=== PATIENT | male | born 1940 | race Caucasian/White ===

== ENCOUNTER 2020-03-07 09:36 | Emergency (ER) | payer BC ==
[~2020-03-07] VITALS: Ht 182.9 cm; Wt 97.5 kg
[~2020-03-07 09:36] MED LIST: ASPI325EC PO; ASPI81EC PO; CLOB.05TC TP; CLOP75 PO; ERGO50000 PO; GLYB2.5 PO; GLYB5 PO; Iron Supplemen325 MG PO; LISI20 PO; METF500 PO; METO50ER PO; OMEP20ER PO; PRAV20 PO; TAMS.4ER PO; XARELTO15 MG PO
== END 2020-03-07 11:11 | disposition home or self-care (01) ==
LOC: ER 09:36
DX: S80.12XA Contusion of left lower leg, initial encounter (principal); E11.9 Type 2 diabetes mellitus without complications; I10 Essential (primary) hypertension; I48.91 Unspecified atrial fibrillation; E78.5 Hyperlipidemia, unspecified; N40.0 Benign prostatic hyperplasia without lower urinary tract symptoms; Z79.82 Long term (current) use of aspirin; Z79.84 Long term (current) use of oral hypoglycemic drugs; Z79.02 Long term (current) use of antithrombotics/antiplatelets; Z79.899 Other long term (current) drug therapy; V43.52XA Car driver injured in collision with other type car in traffic accident, initial encounter; Y92.410 Unspecified street and highway as the place of occurrence of the external cause
CPT/HCPCS: 73590; 99284-25

== ENCOUNTER 2020-04-09 20:27 | Emergency (ER) | payer BC ==
[~2020-04-09] VITALS: Ht 182.9 cm; Wt 99.8 kg
== END 2020-04-09 22:45 | disposition home or self-care (01) ==
LOC: ER 20:27
DX: S90.511D Abrasion, right ankle, subsequent encounter (principal); E11.9 Type 2 diabetes mellitus without complications; I10 Essential (primary) hypertension; I48.91 Unspecified atrial fibrillation; E78.5 Hyperlipidemia, unspecified; Z79.01 Long term (current) use of anticoagulants; Z79.899 Other long term (current) drug therapy; Z79.84 Long term (current) use of oral hypoglycemic drugs; Z79.82 Long term (current) use of aspirin; Z79.02 Long term (current) use of antithrombotics/antiplatelets; Z86.73 Personal history of transient ischemic attack (TIA), and cerebral infarction without residual deficits; X58.XXXD Exposure to other specified factors, subsequent encounter
CPT/HCPCS: 99282

== ENCOUNTER 2023-04-19 15:35 | Inpatient (IN) | payer MEDICARE, BC ==
[~2023-04-19] VITALS: Ht 182.9 cm; Wt 89.6 kg
[2023-04-19 16:27] LABS: BASOPHILS ABSOLUTE AUTO 0.05 K/mm3 (0.00-0.23); BASOPHILS PERCENT AUTO 1 % (0-2); EOSINOPHILS PERCENT AUTO 3 % (0-6); Hematocrit 40.5 % (37.0-53.0); Hemoglobin 13.8 g/dL (13.5-17.5); IMMATURE GRAN ABSOLUTE AUTO 0.03 K/mm3 (0.00-0.10); IMMATURE GRAN PERCENT AUTO 0 % (0-1); LYMPHOCYTES ABSOLUTE AUTO 1.56 K/mm3 (0.84-5.20); LYMPHOCYTES PERCENT AUTO 21 % (21-46); MONOCYTES ABSOLUTE AUTO 0.52 K/mm3 (0.16-1.47); MONOCYTES PERCENT AUTO 7 % (4-13); Mean Corpuscular HGB 30.6 pg (26.0-34.0); Mean Corpuscular HGB Conc 34.1 g/dL (31.5-36.5); Mean Corpuscular Volume 90 fL (80-100); Mean Platelet Volume 9.7 fL (9.1-12.4); NEUTROPHILS ABSOLUTE AUTO 4.98 K/mm3 (1.96-9.15); NEUTROPHILS PERCENT AUTO 68 % (41-73); Platelet Count 194 K/mm3 (150-400); RDW Coefficient Variation 12.1 % (11.7-14.2); RDW Standard Deviation 39.7 fL (35.1-46.3); Red Blood Cell Count 4.51 M/mm3 (4.30-5.90); White Blood Cell Count 7.34 K/mm3 (4.00-11.30)
[2023-04-19 16:56] LABS: Bilirubin, Total 0.3 mg/dL (0.1-1.0); Bun/Creatinine Ratio 37.7 (12.0-20.0); Calcium, Blood 9.7 mg/dL (8.5-10.1); Creatinine, Blood 0.85 mg/dL (0.60-1.20); Globulin, Blood 4.1 g/dL (2.2-4.0); Potassium, Blood 4.4 mmol/L (3.5-5.5); Total Protein, Blood 8.1 g/dL (6.4-8.2)
[2023-04-19] MEDS ORDERED: Aspir 8181 MG PO (17:53)
[2023-04-19] MEDS ORDERED: GLYBURIDE PO (17:54)
[2023-04-19 19:00] LABS: International Normalized Ratio 1.04; Prothrombin Time Results 10.9 Sec (9.7-11.5)
[2023-04-19] MEDS ORDERED: PRAV20 PO (22:26)
[2023-04-19] MEDS ORDERED: NYAMYC1513 TOP (22:27)
[2023-04-19] MEDS ORDERED: GLYB2.5 PO (22:27)
[2023-04-19] MEDS ORDERED: METF500 PO (22:28)
[2023-04-20 09:30] VITALS: BP 130/57
[2023-04-20 12:36] VITALS: BP 135/64
[2023-04-20 16:51] VITALS: BP 116/67
[2023-04-20 20:16] VITALS: BP 123/72
[2023-04-21 04:19] VITALS: BP 124/59
--- NOTE | 2023-04-21 04:20 | NUR ---
SHIFT SUMMARY. PT HAS BEEN DOING WELL THIS SHIFT. [id number] REQUIRING SOME REORIENTATION WITH DATE (ABLE TO TELL ME MONTH/YEAR BUT NOT DAY OF WEEK), PLEASANT, COOPERATIVE WITH CARE. NEURO CHECKS COMPLETED Q4 PER ORDER, NO CHANGES THIS SHIFT. 1-2 PERSON ASSIST TO BATHROOM, REQUIRES 2 PEOPLE GETTING OOB BUT STEADY GAIT TO BATHROOM ONCE UP. NO PAIN REPORTED THIS SHIFT. PT SOMEWHAT IMPULSIVE BUT VERY EASILY REDIRECTED. BED ALARM LEFT IN PLACE FOR SAFETY. PT HAS BEEN ABLE TO SLEEP WELL THROUGH MOST OF SHIFT. BED LOCKED IN LOWEST POSITION. CALL LIGHT LEFT WITHIN REACH.
[2023-04-21 06:15] LABS: CHOL/HDL RATIO 2.5; Cholesterol 108 mg/dL (50-200); HDL Cholesterol 43 mg/dL (>39); LDL/HDL RATIO 0.9; Low Density Lipoprotein Chol 38 mg/dL (0-110); Triglycerides 137 mg/dL (30-160); Very Low Density Lipoprot Chol 27 mg/dL (6-32)
[2023-04-21 07:21] VITALS: BP 142/77
[2023-04-21] MEDS ORDERED: CLOP75 PO (11:20)
[2023-04-21] MEDS ORDERED: ASPIR 8181 M1 PO (11:20)
[2023-04-21] MEDS ORDERED: DOCU100 PO (11:22)
[2023-04-21] MEDS ORDERED: MIRALAX17 GM PO (11:23)
--- NOTE | 2023-04-21 15:35 | NUR ---
DISCHARGE SUMMARY: NO ACUTE EVENTS T/O THE DAY. NO CHANGES TO NEUROLOGICAL ASSESSMENT. PT WORKED WITH PT/OT/ST TODAY. PT WILL FOLLOW UP WITH HOME HEALTH AND OUT PT BARIUM SWALLOW STUDY. PT'S DTR AT BEDSIDE FOR DISCHARGE TEACHING INCLUDING MEDICATION LIST AND INSTRUCTIONS, FOLLOW UP APPOINTMENTS AND EDUCATION MATERIALS. PT'S DTR STATES SHE HAS NO QUESTIONS OR CONCERNS ABOUT PT'S DISCHARGE AT THIS TIME. CARE MANAGEMENT HAS ARRANGED HOME HEALTH TO CONTACT PT/FAMILY TO SCHEDULE HOME VISIT. IV AND TELE REMOVED. PT DISCHARGED WITH ALL BELONGINGS. NO FURTHER DISCHARGE NEEDS IDENTIFIED.
== END 2023-04-21 15:29 | disposition home health service (06) | DRG 65 ==
LOC: ER 15:35 → MEDS 20:37 → ERHOLD 20:37 → ER 20:37 → PCU 20:37 → EDBEDREQ 21:25 → PCU 04-20 09:15
PROVIDERS: Internal Medicine; Physician Assistant; Student in an Organized Health Care Education/Training Program; ADMIT Internal Medicine
DX: I63.231 Cerebral infarction due to unspecified occlusion or stenosis of right carotid arteries (principal); G81.94 Hemiplegia, unspecified affecting left nondominant side; I10 Essential (primary) hypertension; E11.9 Type 2 diabetes mellitus without complications; I48.0 Paroxysmal atrial fibrillation; I65.22 Occlusion and stenosis of left carotid artery; Z66 Do not resuscitate; R47.81 Slurred speech; R29.810 Facial weakness; R47.1 Dysarthria and anarthria; R27.0 Ataxia, unspecified; K58.9 Irritable bowel syndrome, unspecified; N40.0 Benign prostatic hyperplasia without lower urinary tract symptoms; E78.5 Hyperlipidemia, unspecified; R29.705 NIHSS score 5; D50.9 Iron deficiency anemia, unspecified; Z95.3 Presence of xenogenic heart valve; Z87.891 Personal history of nicotine dependence; Z79.82 Long term (current) use of aspirin; Z79.02 Long term (current) use of antithrombotics/antiplatelets; Z79.84 Long term (current) use of oral hypoglycemic drugs
CPT/HCPCS: 36415; 70450; 70496; 70498; 80053; 80061; 82947; 85025; 85610; 92526; 92610; 93005; 93010; 93306; 97162; 97166; 97530; 97535; 99285-25; A9270; J1650; J1815; Q9967